=== PATIENT | male | born 1940 | race Caucasian/White ===

== ENCOUNTER 2021-12-21 12:47 | Inpatient (IN) | payer OTHER ==
[~2021-12-21] VITALS: Ht 182.9 cm; Wt 122.6 kg
[2021-12-21 15:33] LABS: BASOPHILS ABSOLUTE AUTO 0.02 K/mm3 (0.00-0.23); BASOPHILS PERCENT AUTO 0 % (0-2); EOSINOPHILS ABSOLUTE AUTO 0.23 K/mm3 (0.00-0.68); EOSINOPHILS PERCENT AUTO 2 % (0-6); Hematocrit 41.8 % (37.0-53.0); Hemoglobin 14.2 g/dL (13.5-17.5); IMMATURE GRAN ABSOLUTE AUTO 0.04 K/mm3 (0.00-0.10); IMMATURE GRAN PERCENT AUTO 0 % (0-1); LYMPHOCYTES ABSOLUTE AUTO 1.29 K/mm3 (0.84-5.20); LYMPHOCYTES PERCENT AUTO 14 % (21-46); MONOCYTES ABSOLUTE AUTO 0.96 K/mm3 (0.16-1.47); MONOCYTES PERCENT AUTO 10 % (4-13); Mean Corpuscular HGB 31.9 pg (26.0-34.0); Mean Corpuscular Volume 94 fL (80-100); Mean Platelet Volume 10.6 fL (9.1-12.4); NEUTROPHILS ABSOLUTE AUTO 6.97 K/mm3 (1.96-9.15); NEUTROPHILS PERCENT AUTO 73 % (41-73); Platelet Count 238 K/mm3 (150-400); RDW Coefficient Variation 13.5 % (11.7-14.2); RDW Standard Deviation 46.9 fL (35.1-46.3); Red Blood Cell Count 4.45 M/mm3 (4.30-5.90); White Blood Cell Count 9.51 K/mm3 (4.00-11.30)
[2021-12-21 15:46] LABS: Albumin, Blood 3.8 g/dL (3.4-5.0); Albumin/Globulin Ratio 1.1 (0.8-1.8); Bilirubin, Total 0.5 mg/dL (0.1-1.0); Bun/Creatinine Ratio 19.2 (12.0-20.0); Calcium, Blood 10.2 mg/dL (8.5-10.1); Creatinine, Blood 1.2 mg/dL (0.60-1.20); Globulin, Blood 3.4 g/dL (2.2-4.0); Potassium, Blood 4.4 mmol/L (3.5-5.5); Total Protein, Blood 7.2 g/dL (6.4-8.2)
[2021-12-21] MEDS ORDERED: SIMV80 (15:50)
[2021-12-21] MEDS ORDERED: Prinivil10 MG PO (15:50)
--- NOTE | 2021-12-22 04:12 | NUR ---
SHIFT SUMMARY PATIENT IS ALERT AND ORIENTED. PATIENT IS A RECENT ADMIT FROM ED FOR CHEST PAIN. PATIENT HAS HAD NO ACUTE EVENTS THIS SHIFT. VITAL SIGNS REVIEWED. PATIENT HAS HAD NO COMPLAINS OF PAIN, NAUSEA, VOMITTING OR SOB THIS SHIFT. PATIENT IS NPO SINCE 3AM FOR PENDING STRESS TEST TODAY. BED IN LOCKED AND LOWEST POSITION. CALL LIGHT IN PLACE. WILL MONITOR UNTIL SHIFT CHANGE.
[2021-12-22 10:36] LABS: CHOL/HDL RATIO 4.3; Cholesterol 143 mg/dL (50-200); HDL Cholesterol 33 mg/dL (>39); LDL/HDL RATIO 2.6; Low Density Lipoprotein Chol 86 mg/dL (0-110); Triglycerides 118 mg/dL (30-160); Very Low Density Lipoprot Chol 23 mg/dL (6-32)
[2021-12-22 11:28] LABS: SARS-Cov-2 (COVID-19) PCR, MMC NEGATIVE (NEGATIVE)
--- NOTE | 2021-12-22 12:20 | NUR ---
RN FROM NARROW GAUGE ENGINEER IN ROOM PREPARING PATIENT FOR ANGIOGRAM. PATIENT WILL TRANSFER TO PCU6 ONCE ANGIOGRAM IS COMPLETE.
--- NOTE | 2021-12-22 12:22 | NUR ---
PATIENT LEFT HIS ROOM HEADING FOR THE COMPUTER GAME TESTER. HAS HIS BELONGINGS.
--- NOTE | 2021-12-22 16:53 | NUR ---
[facility]
--- NOTE | 2021-12-22 18:21 | NUR ---
PATIENT TRANSFER TO PCU POST EVP BUSINESS DEVELOPMENT. 4 STENTS PLACED, RIGHT RADIAL SITE RECOVERED AND WNL. ARM BOARD IN PLACE. NO SIGNS OF BLEEDING OR HEMTOMA. ALERT AND ORIENTED X4. LUNGS SOUNDING CLEAR, ON ROOM AIR, SATING ABOVE 95%. TELE SHOWING SINUS RHYTHM WITH HR 60-70'S. DENIED CHEST PAIN POST CATH. 06/25 CHEST PAIN STARTED AROUND DINNER. DESCRIBES PAIN DULL ACROSS CHEST, RELATES IT TO PAIN THAT BROUGHT HIM IN, DENIES HEARTBURN, DENIES SHARP SHOOTING PAIN. DR. HDZ CALLED. EKG COMPLETED AND SENT TO DR. HDZ. ORDERS FOR MAALOX. PATIENT SITTING ON EDGE OF BED, DRINKING WATER PAIN DIMINISHED 05/25 BUT STILL PRESENT. ORDERS FOR PRN NITRO, SEE EMAR. PATIENT WANTING TO WAIT A TINY BIT LONGER TO SEE IF CP RESOLVES, SINCE IMPROVING AT THIS TIME. NO NITRO GIVEN YET. TALKING WITH ON PHONE. CALL LIGHT IN REACH. DENIES NEEDS AT THIS TIME. WILL CONTINUE TO MONITOR.
--- NOTE | 2021-12-22 18:34 | NUR ---
CHEST PAIN DECREASED TO 2/10
[2021-12-23 04:01] LABS: Hematocrit 39.3 % (37.0-53.0); Hemoglobin 13.4 g/dL (13.5-17.5); Mean Corpuscular HGB 31.6 pg (26.0-34.0); Mean Corpuscular HGB Conc 34.1 g/dL (31.5-36.5); Mean Corpuscular Volume 93 fL (80-100); Mean Platelet Volume 9.7 fL (9.1-12.4); Platelet Count 201 K/mm3 (150-400); RDW Coefficient Variation 13.5 % (11.7-14.2); RDW Standard Deviation 46.1 fL (35.1-46.3); Red Blood Cell Count 4.24 M/mm3 (4.30-5.90); White Blood Cell Count 11.91 K/mm3 (4.00-11.30)
[2021-12-23 04:22] LABS: Bun/Creatinine Ratio 22.7 (12.0-20.0); Calcium, Blood 9.4 mg/dL (8.5-10.1); Creatine Kinase MB 8.3 ng/mL (0.0-3.6); Creatine Kinase MB Index 11.2 (0.0-4.0); Creatinine, Blood 0.97 mg/dL (0.60-1.20); Potassium, Blood 4.2 mmol/L (3.5-5.5)
--- NOTE | 2021-12-23 07:44 | NUR ---
PATIENT HAD 3 EPISODES OF CHEST PAIN OVERNIGHT. THE FIRST WAS AT SHIFT CHANGE LAST EVENING. PATIENT REPORTED CHEST PAIN AT 4-5/10 AND DESCRIBED IT PAINFUL PRESSURE TO THE RIGHT AND MID-STERANL CHEST. EDUCATION PROVIDED REGARDING THE MECHANISM OF ACTION AND BENEFIT OF NITROGLYCERIN AND AGREED TO TAKE THE NITROGLYCERIN. CHEST PAIN RESOLVED WITH 2 DOSES OF SUBLINGUAL NITROGLYCERIN FOR A TOTAL OF 0.8 MG THE SECOND OCCURRENCE WAS REPORTED AROUND 01:30 AND RATED 1-2/10, DESCRIBED DISCOMFORT. ADVISED WILL CONTINUE TO MONITOR AND TO LET ME KNOW IF THE PAIN STARTS TO GET ANY WORSE. THE THIRD EPISODE WAS AT 04:20, RATED 2-3/10, DESCRIBED PRESSURE AND SEEMING TO BE GETTING WORSE. NOT OTHER SYMPTOMS. CHEST PAIN RESOLVED WITH 2 DOSES OF SUBLINGUAL NITROGLYCERIN FOR A TOTAL OF 0.8MG. RIGHT RADIAL SITE REMAINS INTACT AND WITHOUT ISSUES. EDUCATION PROVIDED REGARDING POST-CATH RESTRICTIONS RELATED TO THE RIGHT RADIAL SITE.
--- NOTE | 2021-12-23 09:08 | NUR ---
AM NOTE: PATIENT ALERT AND ORIENTED X4. DENIES NUMBNESS/TINGLING. ABLE TO MOVE ALL EXTREMITIES. SBA TO BATHROOM. LUNGS SOUNDING CLEAR. TELE SHOWING SINUS RHYTHM. HEART MURMUR HEARD. BP STABLE. HR 70-80'S. RIGHT RADIAL SITE WNL. DENIES CHESET PAIN AT THIS TIME. CARDIOLOGY BY THIS AM AND SIGNED OFF. PATIENT WILL NEED TO FOLLOW UP OUTPATIENT WITH CARDIOLOGY AND CARDIAC REHAB. REFERRAL SENT YESTERDAY. EATING WELL. DENIES ANY OTHER ISSUES. CALL LIGHT IN REACH. WILL CONTINUE TO MONITOR.
[2021-12-23] MEDS ORDERED: ASPI81CH PO (10:12)
[2021-12-23] MEDS ORDERED: ATOR40TA PO (10:13)
[2021-12-23] MEDS ORDERED: CLOP75 PO (10:14)
[2021-12-23] MEDS ORDERED: METO25ER PO (10:15)
[2021-12-23] MEDS ORDERED: NITR.4SL SL (10:16)
--- NOTE | 2021-12-23 10:57 | NUR ---
DISCHARGE: NO ACUTE CHANGES. REMAINS CHEST PAIN FREE. AT BEDSIDE. REVIEWED ALL DISCHARGE EDUCATION INCLUDING POST ANGIO RADIAL SITE CARE, NEW MEDICATIONS, FOLLOW UP APPOINTMENTS AND CHEST PAIN. PATIENT AND ABLE TO TEACH BACK ALL EDUCATION. PATIENT LEFT UNIT VIA WHEELCHAIR WITH ALL PERSONAL BELONGINGS.
== END 2021-12-23 10:56 | disposition home or self-care (01) | DRG 246 ==
LOC: ER 12:47 → MEDS 12:48 → PCU 12-22 14:40
PROVIDERS: Internal Medicine Cardiovascular Disease; Physician Assistant; ADMIT Hospitalist
PROC: 027137Z Dilation of Coronary Artery, Two Arteries with Four or More Drug-eluting Intraluminal Devices, Percutaneous Approach (ICD-10-PCS; principal; 2021-12-22)
PROC: 4A023N7 Measurement of Cardiac Sampling and Pressure, Left Heart, Percutaneous Approach (ICD-10-PCS; 2021-12-22)
PROC: B2111ZZ Fluoroscopy of Multiple Coronary Arteries using Low Osmolar Contrast (ICD-10-PCS; 2021-12-22)
DX: I25.110 Atherosclerotic heart disease of native coronary artery with unstable angina pectoris (principal); I50.21 Acute systolic (congestive) heart failure; I24.9 Acute ischemic heart disease, unspecified; I35.0 Nonrheumatic aortic (valve) stenosis; I11.0 Hypertensive heart disease with heart failure; E78.2 Mixed hyperlipidemia; I27.21 Secondary pulmonary arterial hypertension; I77.9 Disorder of arteries and arterioles, unspecified; E78.6 Lipoprotein deficiency; Z20.822 Contact with and (suspected) exposure to COVID-19; Z86.79 Personal history of other diseases of the circulatory system; Z87.891 Personal history of nicotine dependence; Z79.811 Long term (current) use of aromatase inhibitors; Z90.49 Acquired absence of other specified parts of digestive tract; Z98.890 Other specified postprocedural states; Z96.653 Presence of artificial knee joint, bilateral
CPT/HCPCS: 36415; 71045; 76937; 80048; 80053; 80061; 82550; 82553; 83880; 84484; 85025; 85027; 85347; 92978; 93005; 93010; 93306; 93454; 93458; 93571; 93572; 93880; 99285-25; A9270; C1725; C1769; C1874; C1887; C1894; C9600; C9601; G0378; J1644; J2250; J3010; J7030; J7040; J7050; Q9967; U0004

== ENCOUNTER 2022-03-05 10:34 | Day surgery (SDC) | payer OTHER ==
[~2022-03-05] VITALS: Ht 152.4 cm; Wt 112.7 kg
[~2022-03-05 10:34] MED LIST: ASPI81CH PO; ATOR40TA PO; CLOP75 PO; METO25ER PO; NITR.4SL SL; Prinivil10 MG PO; SIMV80
== END 2022-03-05 14:05 | disposition home or self-care (01) ==
LOC: ORSCSDS 10:34
PROVIDERS: Internal Medicine Gastroenterology
PROC: 0DBM8ZX Excision of Descending Colon, Via Natural or Artificial Opening Endoscopic, Diagnostic (ICD-10-PCS; principal; 2022-03-05 12:15)
PROC: 0DBN8ZX Excision of Sigmoid Colon, Via Natural or Artificial Opening Endoscopic, Diagnostic (ICD-10-PCS; principal; 2022-03-05 12:15)
PROC: 0DBH8ZX Excision of Cecum, Via Natural or Artificial Opening Endoscopic, Diagnostic (ICD-10-PCS; principal; 2022-03-05 12:15)
DX: D50.9 Iron deficiency anemia, unspecified (principal); D12.0 Benign neoplasm of cecum; D12.4 Benign neoplasm of descending colon; K63.5 Polyp of colon; K57.30 Diverticulosis of large intestine without perforation or abscess without bleeding; I25.10 Atherosclerotic heart disease of native coronary artery without angina pectoris; Z87.891 Personal history of nicotine dependence; Z79.02 Long term (current) use of antithrombotics/antiplatelets; E66.9 Obesity, unspecified; Z79.899 Other long term (current) drug therapy
CPT/HCPCS: 88305; J2704; J7120

== ENCOUNTER 2022-05-12 22:49 | Emergency (ER) | payer OTHER ==
[~2022-05-12] VITALS: Ht 182.9 cm; Wt 109.3 kg
== END 2022-05-12 23:48 | disposition home or self-care (01) ==
LOC: ER 22:49
DX: Z48.01 Encounter for change or removal of surgical wound dressing (principal); I25.10 Atherosclerotic heart disease of native coronary artery without angina pectoris; E78.5 Hyperlipidemia, unspecified; I10 Essential (primary) hypertension; I25.2 Old myocardial infarction; Z95.5 Presence of coronary angioplasty implant and graft; Z91.09 Other allergy status, other than to drugs and biological substances; Z91.040 Latex allergy status; Z91.048 Other nonmedicinal substance allergy status; Z96.653 Presence of artificial knee joint, bilateral; Z79.899 Other long term (current) drug therapy; Z79.82 Long term (current) use of aspirin
CPT/HCPCS: 99282

== ENCOUNTER 2023-02-14 07:12 | Day surgery (SDC) | payer OTHER ==
[~2023-02-14] VITALS: Ht 182.9 cm; Wt 98.8 kg
[2023-02-14] VITALS (8 sets, daily range): BP systolic 136–167; BP diastolic 73–106
[~2023-02-14 07:12] MED LIST changes: -ATOR40TA PO; +ATOR80 PO; +XARELTO2.5 MG PO
[2023-02-14] MEDS ORDERED: AMLO10 PO (07:38)
[2023-02-14] MEDS ORDERED: CARV3.125 PO (07:39)
--- NOTE | 2023-02-14 11:09 | NUR ---
0930 KASSIETENT RETURNED FROM THE [facility]ATHLAB VIA BED AND PLACED ON THE MONITOR. RFA AWITH ANGIOSEAL, NO BLEEDING NO HEMATOMA. VVS. NO PAIN NOTED. SBAR RECEIVED FROM MALLIKA MARTIN BROUGHT TO THE BEDSIDE, CALL LIGHT IN REACH. GROIN SOFT AND SIDE RAILS UP X 2.
--- NOTE | 2023-02-14 11:10 | NUR ---
1000 BREAKFAST TRAY SERVED. REMAINS AT THE BEDSIDE. DR. ESPARZA AT THE BEDSIDE AND SPOKE TO THE PATIENT AND . ALL QUESTIONS ANSWERED. BEGAN DISCHARGE TEACHING THIS TIME.
--- NOTE | 2023-02-14 11:12 | NUR ---
1100 HOB UP 45 DEGREES, VVS. RIGHT GROIN UNCHANGED. NO BLEEDING, NO HEMATOMA. ALL DISCHARGE TEACHING REVIEWED. WILL HAVE FOLLOW UP APPOINTMENT IN 4-[address] ESPARZA. NO CHANGE IN MEDICATIONS.
--- NOTE | 2023-02-14 11:37 | NUR ---
PIV REMOVED AND CATH TIP INTACT. PRESSURE DRESSING APPLIED. PATIENT UP AND DRESSED. ALL BELONGINGS GATHERED. GROIN STIE UNCHANGED AND DISCHARGED HOME VIA WHEELCHAIR WITH WIF FIRE WATCHMAN.
== END 2023-02-14 16:16 | disposition home or self-care (01) ==
LOC: MHTC 07:12
DX: I70.1 Atherosclerosis of renal artery (principal); I13.0 Hypertensive heart and chronic kidney disease with heart failure and stage 1 through stage 4 chronic kidney disease, or unspecified chronic kidney disease; N18.9 Chronic kidney disease, unspecified; I50.20 Unspecified systolic (congestive) heart failure; E78.5 Hyperlipidemia, unspecified; I25.10 Atherosclerotic heart disease of native coronary artery without angina pectoris; Z95.5 Presence of coronary angioplasty implant and graft; Z87.891 Personal history of nicotine dependence; Z79.82 Long term (current) use of aspirin; Z79.899 Other long term (current) drug therapy
CPT/HCPCS: 36252; 37236; 76937; 99152; 99153; C1760; C1769; C1876; C1887; C1894; J1644; J2250; J3010; J7030; J7050; Q9967

== ENCOUNTER 2024-11-20 20:05 | Emergency (ER) | payer OTHER ==
[~2024-11-20] VITALS: Ht 182.9 cm; Wt 108.9 kg
[~2024-11-20 20:05] MED LIST changes: +AMLO10 PO; +CARV3.125 PO
[2024-11-20 20:09] VITALS: BP 149/78
[2024-11-20 20:59] LABS: BASOPHILS ABSOLUTE AUTO 0.03 K/mm3 (0.00-0.23); BASOPHILS PERCENT AUTO 0 % (0-2); EOSINOPHILS ABSOLUTE AUTO 0.43 K/mm3 (0.00-0.68); EOSINOPHILS PERCENT AUTO 4 % (0-6); Hematocrit 38.5 % (37.0-53.0); Hemoglobin 12.9 g/dL (13.5-17.5); IMMATURE GRAN ABSOLUTE AUTO 0.07 K/mm3 (0.00-0.10); IMMATURE GRAN PERCENT AUTO 1 % (0-1); LYMPHOCYTES ABSOLUTE AUTO 1.11 K/mm3 (0.84-5.20); LYMPHOCYTES PERCENT AUTO 9 % (21-46); MONOCYTES ABSOLUTE AUTO 1.02 K/mm3 (0.16-1.47); MONOCYTES PERCENT AUTO 8 % (4-13); Mean Corpuscular HGB Conc 33.5 g/dL (31.5-36.5); Mean Corpuscular Volume 95 fL (80-100); NEUTROPHILS ABSOLUTE AUTO 9.71 K/mm3 (1.96-9.15); NEUTROPHILS PERCENT AUTO 79 % (41-73); NRBC ABSOLUTE 0.00 K/mm3 (0.00-0.02); NRBC Auto 0.0 /100 WBC (0.0-0.2); Platelet Count 239 K/mm3 (150-400); RDW Coefficient Variation 13.5 % (11.7-14.2); RDW Standard Deviation 47.0 fL (35.1-46.3)
[2024-11-20 21:17] LABS: Alanine Aminotransfer (ALT/SGP 27.0 U/L (12-78); Albumin, Blood 3.7 g/dL (3.4-5.0); Albumin/Globulin Ratio 1.2 (0.8-1.8); Anion Gap 10.0 mmol/L (3-11); Aspartate Aminotrans (AST/SGOT 24.0 U/L (12-37); Bilirubin, Total 0.5 mg/dL (0.1-1.0); Blood Urea Nitrogen 33.0 mg/dL (8-24); CO2, Blood 22.0 mmol/L (21-32); Calcium, Blood 9.6 mg/dL (8.5-10.1); Chloride, Blood 111.0 mmol/L (98-108); Creatinine, Blood 1.86 mg/dL (0.60-1.20); Globulin, Blood 3.2 g/dL (2.2-4.0); Glucose, Blood 177.0 mg/dL (70-99); Potassium, Blood 3.7 mmol/L (3.5-5.5); Sodium, Blood 139.0 mmol/L (136-145); Total Protein, Blood 6.9 g/dL (6.4-8.2)
== END 2024-11-21 01:31 | disposition home or self-care (01) ==
LOC: ER 20:05
PROVIDERS: Student in an Organized Health Care Education/Training Program
DX: S70.01XA Contusion of right hip, initial encounter (principal); I10 Essential (primary) hypertension; E78.5 Hyperlipidemia, unspecified; Z91.040 Latex allergy status; Z79.82 Long term (current) use of aspirin; Z79.899 Other long term (current) drug therapy; V89.2XXA Person injured in unspecified motor-vehicle accident, traffic, initial encounter; R79.89 Other specified abnormal findings of blood chemistry
CPT/HCPCS: 73502; 80053; 85025; 99283-25